=== PATIENT | female | born 1950 | race Caucasian/White ===

== ENCOUNTER → 2016-10-25 | Outpatient (CLI) | payer MEDICARE ==
--- NOTE | 2016-10-31 11:06 | RADIOLOGY REPORT PS360 ---
DIG MAMM-DX OWEN W/AVWS W/CAD, US BREAST-RT COMPLETE W/AXILLA, US BREAST-LT COMPLETE W/AXILLA COMPARISON: 05/17/2016, 04/20/2016, 03/14/2015 INDICATION: Follow-up abnormal mammogram ORDERING PHYSICIAN: Rocio Willis APRN PATIENT AGE: 66 years TECHNIQUE: Standard images performed with bilateral spot compression views and bilateral breast ultrasound FINDINGS: Right mammogram: Asymmetric density once again noted in the upper outer aspect of the right breast as before not significant change from 04/20/2016.. No malignant appearing mass or malignant appearing microcalcification. Right breast ultrasound: 3 mm cyst at 12:00, 2 mm cyst at 1:00, 6 mm complex cystic area at 9:00. Small axillary nodes. No suspicious abnormalities apparent. Left mammogram: Scattered asymmetric densities likely related to fibroglandular changes. No malignant appearing mass or malignant appearing microcalcification with no significant change from the screening exam of 09/30 or 03/14/2015. Left breast ultrasound: 3 mm cyst at 12:00, complex 5 mm cyst at 1:00, 3 mm cyst at 11:00. No suspicious abnormalities apparent. Small nodes are in axilla IMPRESSION: No change with no convincing evidence of malignancy. Fibrocystic changes BI-RADS CATEGORY: 2_Benign RECOMMENDED FOLLOWUP: Screening mammogram April 2017 (A letter has been sent to the patient regarding results of the study.) All parameters
== END ==
LOC: RAD 13:31
DX: R92.8 Other abnormal and inconclusive findings on diagnostic imaging of breast (principal)
CPT/HCPCS: G0204